=== PATIENT | female | born 1940 | race Caucasian/White ===

== ENCOUNTER 2018-04-23 20:52 | Emergency (ER) | payer MEDICARE, BC ==
[2018-04-23] MEDS ORDERED: Metoclopramide HCl 10 MG/2 ML VIAL ONE (21:18)
[2018-04-23] MEDS ORDERED: diphenhydrAMINE 50 MG/ML VIAL ONE (21:18)
[2018-04-23] MEDS ORDERED: Lorazepam 2 MG/ML VIAL ONE ×3 (21:31→23:24)
[2018-04-23 21:40] LABS: #Basophils 0.1 thou/uL (0.0-0.2); #Eosinphils 0.1 thou/uL (0.0-0.7); #Lymphocytes 4.7 thou/uL (1.20-3.40); #Monocytes 1.7 thou/uL (0.11-0.59); #Neutrophils 11.1 thou/uL (1.40-6.50); %Basophils 0.6 % (0.0-1.0); %Eosinophils 0.5 % (0.0-10.0); %Lymphocytes 26.4 % (21.0-51.0); %Monocytes 9.6 % (0.0-10.0); %Neutrophils 62.8 % (42.0-75.0); Hemoglobin 16.2 g/dL (12.0-16.0); Mean Corpuscular HGB CONC 32.2 g/dL (32.0-36.0); Mean Corpuscular Hemoglobin 29.8 pg (27.0-31.0); Mean Corpuscular Volume 92.3 fL (78.0-98.0); Platelet Count 384 thou/uL (130-400); RBC Distribution Width 12.9 % (11.5-14.5); Red Blood Cell (RBC) Count 5.45 mill/uL (4.20-5.40); White Blood Cell (WBC) Count 17.6 thou/uL (4.8-10.8)
[2018-04-23 22:00] LABS: Acetaminophen Less than 6.0 mcg/mL (10.0-30.0); Alcohol Less than 10 mg/dL (Less than 10); Salicylate Less than 8.0 mg/dL (15.0-30.0)
[2018-04-23 22:03] LABS: ALT (SGPT) 15 U/L (8-55); AST (SGOT) 21 U/L (5-34); Albumin 4.2 g/dL (3.4-4.8); Alkaline Phosphatase 73 U/L (40-150); Anion Gap 20 mmol/L (10-20); BUN (Urea Nitrogen) 23 mg/dL (9.8-20.1); Bilirubin, Total 0.5 mg/dL (0.2-1.2); Calc. Creatinine Clearance 0 mL/min (70-130); Carbon Dioxide 21 mmol/L (23-31); Chloride 97 mmol/L (98-107); Estimated GFR-MDRD 53; Globulin 3.7 g/dL (2.4-3.5); Glucose 139 mg/dL (83-110); Potassium 4.5 mmol/L (3.5-5.1); Protein, Total 7.9 g/dL (6.0-8.3); Sodium 133 mmol/L (136-145)
[2018-04-23 22:23] LABS: CKMB 4.8 ng/mL (0-6.6)
--- NOTE | 2018-04-23 23:28 | CT ---
CT HEAD NONCONTRAST: 04/23/2018 HISTORY: Headache. COMPARISON: 03/31/2016 FINDINGS: There are hands on either side of the patient's head, with artifact related to external jewelry, mild ly degrading image quality. There are low density areas seen within the periventricular white matter , which are nonspecific, but likely reflective of mild chronic small vessel ischemic changes. No obv ious acute cortical infarction is seen. There is no hemorrhage, mass effect, or midline shift. A li near low density area is again seen in the right cerebellar hemisphere, related to a remote infarctio n. Mild cerebral and cerebellar volume loss is again present. There is opacification of the right maxillary antrum. The remainder of the visualized paranasal sinu ses are clear. The right mastoid air cells are not well pneumatized, and this is unchanged from prio r exam. The left mastoid air cells are clear. The calvarial structures are intact. IMPRESSION: 1. No acute intracranial abnormalities demonstrated. 2. Remote infarction, right cerebellar hemisphere. 3. Chronic small vessel ischemic changes and cerebral volume loss. 4. Opacification of the right maxillary antrum. POS: [facility]
--- NOTE | 2018-04-24 00:09 | RAD ---
PORTABLE AP CHEST X-RAY: 04/23/2018 HISTORY: Leukocytosis. Agitation. COMPARISON: 03/31/2016 FINDINGS: The cardiac silhouette and pulmonary vasculature are within normal limits. There is mild accentuatio n of the bronchovascular markings due to shallow depth of inspiration and portable technique. A line ar area of scarring in the left mid lung zone is again seen. There is suggested increased density at the left lateral lung base, but this is likely related to overlying soft tissue density. Vascular c alcification is seen in the thoracic aorta. There is osteopenia. 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 Vascular calcification is seen in th e thoracic aorta. IMPRESSION: 1. No acute cardiopulmonary process. 2. Stable area of scarring in the left mid lung zone. 3. Surgical clips, left axillary region. POS: [facility]
[2018-04-24 00:33] LABS: Bilirubin Negative (Negative); Blood, Urine Moderate (Negative); Clarity CLOUDY (Clear); Glucose, Urine (Dipstick) Negative (Negative); Leukocyte Negative (Negative); Nitrite Negative (Negative); Protein, Urine (Dipstick) 300 mg/dL (Neg-Trace); Urobilinogen 0.2 mg/dL (0.2-1.0); pH, Urine 5.5 (5.0-9.0)
[2018-04-24 00:36] LABS: Pathc Cast-AUWi Flag 0.87 (0-2.49); RBC/HPF 0-3 HPF (0-3); Squamous Epithelial 0-3 HPF (0-3)
[2018-04-24 00:44] LABS: Bacteria/HPF Rare-Few HPF (None Seen); Hyaline Casts/LPF 4-6 HYALINE CAST LPF (0-3 Hyaline); Renal Epithelial None Seen HPF (0-3); Transitional Epithelial 0-3 HPF (0-3)
[2018-04-24 00:48] LABS: Amphetamine Not Detected (NotDetected); Barbiturates Screen Not Detected (NotDetected); Benzodiazepine Screen Detected (NotDetected); Cocaine Metabolite Screen Not Detected (NotDetected); Medtox Control Line Valid? VALID (VALID); Medtox Reader # READER 4; Methadone Not Detected (NotDetected); Methamphetamine Not Detected (NotDetected); Opiate Screen Not Detected (NotDetected); Oxycodone Screen Not Detected (NotDetected); Phencyclidine (PCP) Not Detected (NotDetected); THC/Cannabinoid Screen Not Detected (NotDetected); Tricyclic Screen Not Detected (NotDetected)
== END 2018-04-24 01:40 | disposition home or self-care (01) ==
LOC: ERS 20:52
DX: Z91.14 Patient's other noncompliance with medication regimen (principal); E11.9 Type 2 diabetes mellitus without complications; I10 Essential (primary) hypertension; J44.9 Chronic obstructive pulmonary disease, unspecified
CPT/HCPCS: 36415; 70450; 71045; 80053; 80306; 80307; 81003; 81015; 82553; 83605; 84484; 85025; 87086; 93005; 96365; 96375; 96376; A4353; J1200; J2060; J2765

== ENCOUNTER 2023-01-09 13:37 | Inpatient (IN) | payer MEDICARE, BC ==
[~2023-01-09 13:37] MED LIST: Iopamidol-370 76% 500 ML MDV (1 ML CHARGE) ONE
[2023-01-09 14:40] LABS: Hematocrit 45.5 % (36.0-47.0); Hemoglobin 14.9 g/dL (12.0-16.0); Mean Corpuscular HGB CONC 32.7 g/dL (32.0-36.0); Mean Corpuscular Hemoglobin 29.8 pg (27.0-31.0); Mean Platelet Volume 11.6 fL (7.4-10.4); Platelet Count 327 10x3/uL (130-400); RBC Distribution Width 15.3 % (11.5-14.5); White Blood Cell (WBC) Count 15.8 10x3/uL (4.8-10.8)
[2023-01-09 14:42] LABS: Delete Auto Diff?? YES; Manual Diff?? YES
[2023-01-09 15:02] LABS: ALT (SGPT) 17 U/L (8-55); AST (SGOT) 27 U/L (5-34); Albumin 3.5 g/dL (3.4-4.8); Alkaline Phosphatase 64 U/L (40-110); Anion Gap 14 mmol/L (10-20); BUN (Urea Nitrogen) 10 mg/dL (9.8-20.1); Bilirubin, Total 0.3 mg/dL (0.2-1.2); Calc. Creatinine Clearance 0 mL/min (70-130); Calcium 9.6 mg/dL (7.8-10.44); Carbon Dioxide 23 mmol/L (23-31); Chloride 104 mmol/L (98-107); Estimated GFR 47; Globulin 3.2 g/dL (2.4-3.5); Glucose 234 mg/dL (83-110); Lipase 30 U/L (8-78); Magnesium 1.9 mg/dL (1.6-2.6); Protein, Total 6.7 g/dL (5.8-8.1); Sodium 135 mmol/L (136-145)
[2023-01-09 15:06] LABS: Troponin I 0.044 ng/mL (< 0.028)
[2023-01-09 15:07] LABS: Potassium 6.3 mmol/L (3.5-5.1)
[2023-01-09 15:12] LABS: CellaVision Operator ID LAB.KB; Eosinophils 7 % (0-10); Lymphocytes 10 % (21-51); Monocytes 4 % (0-10); Neutrophil 69 % (42-75); Platelet Adequacy Comment Platelets Normal; Polychromasia SLIGHT = 2-3 cells HPF (0-2); Reactive Lymphocytes 8 % (0-10); Total Cell Count 100
[2023-01-09] MEDS ORDERED: Calcium Gluc 4.6 MEQ/10 ML (100 MG/ML) ONE (16:01)
[2023-01-09 16:18] LABS: Anion Gap 15 mmol/L (10-20); BUN (Urea Nitrogen) 10 mg/dL (9.8-20.1); Calc. Creatinine Clearance 0 mL/min (70-130); Calcium 9.2 mg/dL (7.8-10.44); Carbon Dioxide 20 mmol/L (23-31); Chloride 102 mmol/L (98-107); Estimated GFR 48; Glucose 232 mg/dL (83-110); Sodium 130 mmol/L (136-145)
[2023-01-09 16:25] LABS: Potassium 6.7 mmol/L (3.5-5.1)
[2023-01-09] MEDS ORDERED: Aspirin Chewable 81 MG TAB ONE (16:27)
[2023-01-09] MEDS ORDERED: Albuterol 2.5 MG/0.5 ML NEB ONE (16:50)
[2023-01-09] MEDS ORDERED: Sodium Bicarb 50 MEQ/50 ML VIAL ONE (16:50)
[2023-01-09] MEDS ORDERED: Dextrose 50% Abboject 50 ML SYRINGE ONE (16:50)
[2023-01-09] MEDS ORDERED: Furosemide 40 MG/4 ML VIAL ONE (16:50)
[2023-01-09] MEDS ORDERED: Insulin Regular 300 UNITS/3 ML VIAL ONE (16:50)
[2023-01-09] MEDS ORDERED: Ondansetron PF 4 MG/2 ML Vial IVP PRN (17:22)
[2023-01-09] MEDS ORDERED: Loperamide HCl 2 MG CAP PO PRN (17:22)
[2023-01-09] MEDS ORDERED: Acetaminophen 325 MG TAB PO PRN (17:22)
[2023-01-09] MEDS ORDERED: HYDROcodone/Acetaminophen 5/325 mg Tablet PO PRN (17:22)
[2023-01-09] MEDS ORDERED: Senokot S 8.6-50 MG TAB PO PRN (17:22)
[2023-01-09] MEDS ORDERED: LOKELMA 10 GM PACKET PO SCH (17:30)
[2023-01-09] MEDS ORDERED: Dextrose 50% Abboject 50 ML SYRINGE SLOW IVP PRN (17:53)
[2023-01-09] MEDS ORDERED: Dextrose 5% in Water 1,000 ML IV PRN (17:53)
[2023-01-09] MEDS ORDERED: Glucagon 1 MG/ML KIT IM PRN (17:53)
[2023-01-09 19:15] LABS: Anion Gap 14 mmol/L (10-20); BUN (Urea Nitrogen) 10 mg/dL (9.8-20.1); Calc. Creatinine Clearance 0 mL/min (70-130); Calcium 10.1 mg/dL (7.8-10.44); Carbon Dioxide 24 mmol/L (23-31); Chloride 102 mmol/L (98-107); Estimated GFR 44; Glucose 270 mg/dL (83-110); Potassium 5.8 mmol/L (3.5-5.1); Sodium 134 mmol/L (136-145)
[2023-01-09] MEDS: Famotidine/PF 20 mg/2ml Vial SLOW IVP SCH (21:38)
[2023-01-09] MEDS: LOKELMA 10 GM PACKET PO SCH (21:38)
[2023-01-09] MEDS: Sodium Chloride 0.9% 1,000 ML IV SCH (21:38)
[2023-01-09 22:14] LABS: Troponin I 0.034 ng/mL (< 0.028)
[2023-01-10 05:21] LABS: #Basophils 0.2 thou/uL (0.0-0.2); #Eosinphils 0.5 thou/uL (0.0-0.7); #Monocytes 1.8 thou/uL (0.11-0.59); %Basophils 1.2 % (0.0-1.0); %Eosinophils 2.7 % (0.0-10.0); %Lymphocytes 19.4 % (21.0-51.0); %Monocytes 10.5 % (0.0-10.0); %Neutrophils 65.7 % (42.0-75.0); Hematocrit 43.8 % (36.0-47.0); Hemoglobin 14.3 g/dL (12.0-16.0); Mean Corpuscular HGB CONC 32.6 g/dL (32.0-36.0); Mean Platelet Volume 12.4 fL (7.4-10.4); Platelet Count 345 10x3/uL (130-400); RBC Distribution Width 15.3 % (11.5-14.5); Red Blood Cell (RBC) Count 4.76 mill/uL (4.20-5.40); White Blood Cell (WBC) Count 16.8 10x3/uL (4.8-10.8)
[2023-01-10 05:46] LABS: Anion Gap 16 mmol/L (10-20); BUN (Urea Nitrogen) 10 mg/dL (9.8-20.1); Calc. Creatinine Clearance 0 mL/min (70-130); Calcium 9.4 mg/dL (7.8-10.44); Carbon Dioxide 25 mmol/L (23-31); Chloride 101 mmol/L (98-107); Estimated GFR 40; Glucose 209 mg/dL (83-110); Potassium 4.9 mmol/L (3.5-5.1); Sodium 137 mmol/L (136-145)
[2023-01-10] MEDS: HumaLOG 300 UNITS/3 ML VIAL SC PRN ×2 (06:32→18:30)
[2023-01-10 06:37] VITALS: BMI 25.0
[2023-01-10] MEDS: Sodium Chloride 0.9% 1,000 ML IV SCH ×2 (06:46→20:56)
[2023-01-10 07:09] LABS: Bacteria/HPF 2+ HPF (None Seen); Bilirubin Negative (Negative); Blood, Urine Negative (Negative); CAUTI Indications for Culture Dysuria,urgency,freq; Clarity Clear (Clear); Glucose, Urine (Dipstick) 30 mg/dL (Negative); Ketone, Urine Negative (Negative); Leukocyte 250 Leu/uL (Negative); Nitrite Negative (Negative); Protein, Urine (Dipstick) 20 mg/dL (Neg-Trace); RBC/HPF 0-3 HPF (0-3); Specific Gravity, Urine 1.022 (1.002-1.036); Squamous Epithelial 0-3 HPF (0-3); Urobilinogen Normal mg/dL (Less than 2); WBC/HPF 21-50 HPF (0-3); pH, Urine 6.5 (5.0-9.0)
[2023-01-10 08:25] LABS: Urine Culture Reflex Yes Yes
[2023-01-10] MEDS ORDERED: Sertraline 100 MG TAB PO SCH (09:00)
[2023-01-10] MEDS: Famotidine/PF 20 mg/2ml Vial SLOW IVP SCH ×2 (09:00→11:12)
[2023-01-10] MEDS ORDERED: Famotidine/PF 20 mg/2ml Vial SLOW IVP SCH (09:30)
[2023-01-10] MEDS: Aspirin 81 mg Enteric Coated Tablet PO SCH (11:11)
[2023-01-10] MEDS: Sertraline 25 MG TAB PO SCH (11:11)
[2023-01-10] MEDS: LOKELMA 10 GM PACKET PO SCH (11:12)
[2023-01-10] MEDS: cefTRIAXone\\ROCEPHIN 1 GM in Sodium Chloride 0.9% 100 ML IVPB SCH (17:13)
[2023-01-10] MEDS ORDERED: HumaLOG 300 UNITS/3 ML VIAL SC PRN (18:08)
[2023-01-10] MEDS ORDERED: Metoclopramide HCl 10 MG/2 ML VIAL IVP PRN (18:09)
[2023-01-10] MEDS ORDERED: Insulin Regular 300 UNITS/3 ML VIAL ONE (18:15)
[2023-01-10] MEDS: Rosuvastatin 20 MG TAB PO SCH (20:56)
[2023-01-11] MEDS: HumaLOG 300 UNITS/3 ML VIAL SC PRN ×3 (06:35→18:08)
[2023-01-11] MEDS: Levothyroxine Sodium 125 MCG TAB PO SCH (06:35)
[2023-01-11 06:45] LABS: #Basophils 0.2 thou/uL (0.0-0.2); #Eosinphils 0.8 thou/uL (0.0-0.7); #Monocytes 1.5 thou/uL (0.11-0.59); %Basophils 1.5 % (0.0-1.0); %Eosinophils 6.2 % (0.0-10.0); %Lymphocytes 22.8 % (21.0-51.0); %Monocytes 12.4 % (0.0-10.0); %Neutrophils 56.6 % (42.0-75.0); Hematocrit 41.9 % (36.0-47.0); Hemoglobin 13.6 g/dL (12.0-16.0); Mean Corpuscular HGB CONC 32.5 g/dL (32.0-36.0); Mean Corpuscular Hemoglobin 30.1 pg (27.0-31.0); Mean Corpuscular Volume 92.7 fl (78.0-98.0); Platelet Count 330 10x3/uL (130-400); RBC Distribution Width 15.5 % (11.5-14.5); Red Blood Cell (RBC) Count 4.52 mill/uL (4.20-5.40); White Blood Cell (WBC) Count 12.4 10x3/uL (4.8-10.8)
[2023-01-11 07:19] LABS: Anion Gap 12 mmol/L (10-20); BUN (Urea Nitrogen) 11 mg/dL (9.8-20.1); Calc. Creatinine Clearance 44 mL/min (70-130); Carbon Dioxide 25 mmol/L (23-31); Chloride 105 mmol/L (98-107); Estimated GFR 50; Glucose 235 mg/dL (83-110); Potassium 5.1 mmol/L (3.5-5.1); Sodium 137 mmol/L (136-145)
[2023-01-11] MEDS: Aspirin 81 mg Enteric Coated Tablet PO SCH (09:24)
[2023-01-11] MEDS: Famotidine/PF 20 mg/2ml Vial SLOW IVP SCH (09:26)
[2023-01-11] MEDS: Sodium Chloride 0.9% 1,000 ML IV SCH (09:27)
[2023-01-11 09:31] LABS: Free T4 (Free Thyroxine) 0.79 ng/dL (0.70-1.48)
[2023-01-11] MEDS ORDERED: Insulin Glargine 30 UNITS/0.3 ML VIAL SC SCH (09:42)
[2023-01-11] MEDS: Sertraline 25 MG TAB PO SCH (10:32)
[2023-01-11] MEDS: cefTRIAXone\\ROCEPHIN 1 GM in Sodium Chloride 0.9% 100 ML IVPB SCH (16:33)
[2023-01-11] MEDS: Rosuvastatin 20 MG TAB PO SCH (20:29)
[2023-01-12 04:13] LABS: #Basophils 0.2 thou/uL (0.0-0.2); #Monocytes 1.5 thou/uL (0.11-0.59); #Neutrophils 6.6 thou/uL (1.40-6.50); %Basophils 1.7 % (0.0-1.0); %Eosinophils 7.9 % (0.0-10.0); %Lymphocytes 26.8 % (21.0-51.0); %Monocytes 11.7 % (0.0-10.0); %Neutrophils 51.4 % (42.0-75.0); Hemoglobin 13.5 g/dL (12.0-16.0); Mean Corpuscular HGB CONC 32.1 g/dL (32.0-36.0); Mean Corpuscular Hemoglobin 29.5 pg (27.0-31.0); Mean Corpuscular Volume 91.9 fl (78.0-98.0); Mean Platelet Volume 11.5 fL (7.4-10.4); Platelet Count 337 10x3/uL (130-400); RBC Distribution Width 14.9 % (11.5-14.5); Red Blood Cell (RBC) Count 4.57 mill/uL (4.20-5.40); White Blood Cell (WBC) Count 12.9 10x3/uL (4.8-10.8)
[2023-01-12 04:40] LABS: Anion Gap 10 mmol/L (10-20); BUN (Urea Nitrogen) 12 mg/dL (9.8-20.1); Calc. Creatinine Clearance 52 mL/min (70-130); Calcium 9.2 mg/dL (7.8-10.44); Carbon Dioxide 28 mmol/L (23-31); Chloride 102 mmol/L (98-107); Estimated GFR 60; Glucose 191 mg/dL (83-110); Potassium 4.5 mmol/L (3.5-5.1); Sodium 135 mmol/L (136-145)
[2023-01-12] MEDS: HumaLOG 300 UNITS/3 ML VIAL SC PRN ×2 (06:33→18:17)
[2023-01-12] MEDS: Levothyroxine Sodium 125 MCG TAB PO SCH (06:33)
[2023-01-12] MEDS: Insulin Glargine 30 UNITS/0.3 ML VIAL SC SCH (09:27)
[2023-01-12] MEDS: Aspirin 81 mg Enteric Coated Tablet PO SCH (09:27)
[2023-01-12] MEDS: Sertraline 25 MG TAB PO SCH (09:52)
[2023-01-12] MEDS: cefTRIAXone\\ROCEPHIN 1 GM in Sodium Chloride 0.9% 100 ML IVPB SCH (18:33)
[2023-01-12] MEDS: Rosuvastatin 20 MG TAB PO SCH (20:46)
[2023-01-13] MEDS: Levothyroxine Sodium 125 MCG TAB PO SCH (05:07)
[2023-01-13] MEDS: HumaLOG 300 UNITS/3 ML VIAL SC PRN (05:07)
[2023-01-13 08:14] VITALS: BP 123/54; TEMP 98.1
[2023-01-13] MEDS: Insulin Glargine 30 UNITS/0.3 ML VIAL SC SCH (09:32)
[2023-01-13] MEDS: Aspirin 81 mg Enteric Coated Tablet PO SCH (09:32)
[2023-01-13] MEDS: Sertraline 25 MG TAB PO SCH (09:32)
[2023-01-14] MEDS ORDERED: Potassium Chloride 20 MEQ TAB PO SCH (08:00)
== END 2023-01-13 12:33 | disposition home or self-care (01) | DRG 683 ==
LOC: ERS 13:37 → 2SE 16:44
PROVIDERS: ADMIT Family Medicine; ATTEND Student in an Organized Health Care Education/Training Program
DX: N17.9 Acute kidney failure, unspecified (principal); E87.1 Hypo-osmolality and hyponatremia; J98.11 Atelectasis; J90 Pleural effusion, not elsewhere classified; J44.9 Chronic obstructive pulmonary disease, unspecified; E87.5 Hyperkalemia; N18.30 Chronic kidney disease, stage 3 unspecified; E78.5 Hyperlipidemia, unspecified; K76.0 Fatty (change of) liver, not elsewhere classified; E03.9 Hypothyroidism, unspecified; F39 Unspecified mood [affective] disorder; I12.9 Hypertensive chronic kidney disease with stage 1 through stage 4 chronic kidney disease, or unspecified chronic kidney disease; E11.22 Type 2 diabetes mellitus with diabetic chronic kidney disease; G47.33 Obstructive sleep apnea (adult) (pediatric); I08.3 Combined rheumatic disorders of mitral, aortic and tricuspid valves; R79.89 Other specified abnormal findings of blood chemistry; R00.1 Bradycardia, unspecified; Z86.73 Personal history of transient ischemic attack (TIA), and cerebral infarction without residual deficits; Z98.890 Other specified postprocedural states; Z91.199 Patient's noncompliance with other medical treatment and regimen due to unspecified reason; Z90.49 Acquired absence of other specified parts of digestive tract; Z90.710 Acquired absence of both cervix and uterus; Z88.2 Allergy status to sulfonamides; Z79.82 Long term (current) use of aspirin; Z79.899 Other long term (current) drug therapy; Z79.4 Long term (current) use of insulin
CPT/HCPCS: 36415; 36416; 71045; 74177; 76770; 80048; 80053; 81001; 82533; 83690; 83735; 84439; 84443; 84481; 84484; 85025; 87040; 87077; 87086; 93005; 93010; 93306; 96361; 96374; 96375; J0612; J0696; J1815; J1940; J2765; J3490; J7050; J7611; J7999; Q9967; S0028